=== PATIENT | male | born 1995 | race Caucasian/White ===

== ENCOUNTER 2016-12-04 09:06 | Emergency (ER) | payer OTHER ==
[~2016-12-04] VITALS: Ht 195.6 cm; Wt 75.0 kg
[2016-12-04 09:29] VITALS: BP 147/88; PULSE 78; RESP 16; O2SAT 99
--- NOTE | 2016-12-04 11:13 | ED.REPORT ---
HPI-Headache Date of Service Dec 04, 2016 ED Provider: Brittany Barker MD A 21 year old male with a history of severe headaches and anxiety presents to the ED complaining of a severe headache onset 3 days ago. He has not slept in 3 days. Baseline headaches began when the patient was 8 or 9 years old. He reports that his mom has been diagnosed with migraines, but that he himself has never been diagnosed with migraines. He denies any medication allergies and states that he has not used Imitrex before. He has been given Seroquel in the past to treat anxiety. He smokes a quarter pack of cigarettes per day, but has only smoked marijuana a couple of times this year. He reports no history of substance abuse. He is currently seeing Dr. Vance but does not have a regular doctor. Nursing Notes Stated Complaint: MIGRAINE Chief Complaint: Neuro Symptoms/ Deficits Nursing Notes Reviewed: Yes Allergies: Coded Allergies: haloperidol (Verified Allergy, Intermediate, EPS symptoms, 12/04/16) Scheduled Quetiapine Fumarate (Seroquel) 100 Mg Tablet 100 MG PO HS Sumatriptan Succinate (Imitrex) 50 Mg Tablet 50 MG PO PRN headache General Time Seen by MD: 11:09 Chief Complaint Headache Hx Obtained From: Patient Arrived By: Walk-in Sudden in Onset?: Yes Onset Occurred: 3 days ago Symptom Duration: Since onset Severity: Current: Severe Severity: Maximum: Severe Recent Healthcare: No recent doctor visit Similar Sx Previous: No Past Medical History Past Medical History History of migraines that began at age 8 or 9, but never officialy diagnosed. Anxiety. Past Surgical History None reported. Smoking History Current Every Day Smoker (Quarter of pack per day.) Ambulatory Status Independent Review of Systems Review of Systems Note: Difficulty sleeping. Neurologic: Reports: Headache Complete sys rev & neg: except as marked. Respiratory: Denies: Non-productive cough Physical Exam Initial Vital Signs Vital Signs (First) Date Time Temp Pulse Resp B/P Pulse Ox O2 Delivery O2 Flow Rate FiO2 12/04/16 09:29 37.3 78 16 147/88 99 12/04/16 13:47 Room Air Initial VS: Reviewed General/Constitutional: Awake, Alert Head / Eyes: Normocephalic, PERRL, EOMI Pain is across entire head. No photophobia at 1246 recheck. Neck: Atraumatic, Full range of motion Neurologic: Oriented X3 Pain is acorss entire head, but neurological was otherwise nonfocal. ENT: Atraumatic, Mucous membranes moist Respiratory / Chest: Atraumatic, Breath sounds NL, Breath sounds = bilat, No respiratory distress, No rales, No rhonchi Cardiovascular: Heart rate NL, Regular rhythm, Heart sounds NL, No gallop, No murmurs, No rubs Abdomen: Atraumatic, No guarding, No rebound Skin: Atraumatic, Color NL, No rash, Warm, Dry Color / Condition: Positive: Lymphangitis present Abscess #1 Location/Condition: Positive: Axilla L..., Axilla R..., Breast L... , Perineum... Back: Atraumatic, Full range of motion Upper Extremity / MS: Atraumatic, Full range of motion Wrist / Hand: Atraumatic, Full range of motion Lower Extremity / Pelvis / MS: Atraumatic, Full range of motion Interpretation & Diagnostics Lab Results Interpretation Lab Results Interpretation: IMPRESSION: No acute intracranial abnormality. Dictated by: Yarely Jackson M.D. on 12/04/2016 at 13:32 CT Head Interpretation IMPRESSION: No acute intracranial abnormality. Dictated by: Yarely Jackosn M.D. on 12/04/2016 at 13:32 Approved by: Yarely Jackson M.D. on 12/04/2016 at 13:36 Study: Head CT no contrast Interpretation / Wet Read by: Interpret - Radiologist Re-Eval/Medical Decision Source of Hx: Old records Re-Evaluation/Progress #1: Time of Eval: 12:46 Re-Evaluation/Progress Note: Rechecked the patient and explained plan to administer benadryl. No significant relief with typical MARINO meds yet, about an hour ago. Re-eval after benadryl. If still this same level of pain, will get CT brain. Has not had formal dx of migraine, no imaging done previously, hx is very suggestive of migraine. He has no red flags for headache at this time. Re-Evaluation/Progress #2: Time of Eval: 13:07 Re-Evaluation/Progress Note: Rechecked the patient. Patient is still hurting. He has had minimal response to headache cocktail. He has no photophobia. His lack of sleep for the last couple of days appears to be more related to agitation rather than pain. He is moving his head without any nucal pain. Re-Evaluation/Progress #3: Time of Eval: 14:01 Re-Evaluation/Progress Note: Rechecked the patient, explained test results, diagnosis, and plan for discharge. The patient understands and agrees with the plan. All questions addressed. Counseled Regarding: Diagnosis, Lab results, Need for follow-up, When/why to return to ED Discharge & Departure Impression: Primary Impression: Head ache Additional Impression: Adverse drug effect Ruled Out: Brain mass, Meningitis, Subarachnoid hemorrhage Disposition: Home Discharge Condition All VS Reviewed: Yes Condition: Stable Additional Instructions: Your brain CT was unremarkable today. Your history is certainly suggestive of migraine headache however there are a couple of things that also make me pause and consider further. The fact that our typical migraine cocktail did not make a difference, the lack of light sensitivity, and the severe insomnia all made me think through the migraine diagnosis a bit more thoroughly. At this point, I think the best answer is migraine. I believe that the insomnia is clearly exacerbating the pain. I am going to suggest that you use 100-200 mg of Seroquel in the next one to 2 nights to help put you to sleep I have also given you a prescription for sumatriptan, Imitrex. This is a migraine specific medication and is meant to be taken as soon as you feel a headache starting. It can prevent severe migraines and certainly say B3 days of pain followed by an emergency room visit In the emergency room today, we clearly identified that you do not tolerate Haldol. It has been listed as a formal allergy for you I hope you get some sleep and feel better soon Referrals: TASHA (PCP) Gallo Attestation Portions of this note were transcribed by Stefano Sharpe. I, Dr. Barker, personally performed the history, physical exam, and medical decision-making: I reviewed and confirmed the accuracy for the information in the transcribed note. Signed by: gallo Bansal, 12/04/16 [id number]. copies to: Brittany Rodriguez MD Dec 04, 2016 11:13 Stefano Sharpe Dec 04, 2016 11:29
[2016-12-04] MEDS ORDERED: 0.9% Sodium Chloride 1,000 ML IV ONE (11:27)
[2016-12-04] MEDS ORDERED: Ondansetron 2 mg/mL 2 mL Inj IVPUSH ONE (11:30)
[2016-12-04] MEDS ORDERED: Dexamethasone 10 mg/mL Inj IVPUSH ONE (11:30)
[2016-12-04] MEDS ORDERED: Haloperidol 5 mg/mL Inj IVPUSH ONE (11:30)
[2016-12-04] MEDS ORDERED: HYDROmorphone 1 mg/mL Inj IVPUSH ONE (13:15)
[2016-12-04] MEDS ORDERED: QUET100T PO (13:17)
[2016-12-04] MEDS ORDERED: SUMA50TA31 PO (13:17)
--- NOTE | 2016-12-04 13:37 | DRSVH ---
PROCEDURE: CT BRAIN WITHOUT CONTRAST ([id number]) INDICATIONS: severe headache TECHNIQUE: Noncontrast 4.5 mm thick angled axial sections acquired from the foramen magnum to the vertex, with c oronal reformats. COMPARISON: None. FINDINGS: Image quality: Excellent. CSF spaces: Basal cisterns are patent. No extra-axial fluid collections. Ventricles are normal in size and shape. Brain: No midline shift. No intracranial masses or hemorrhage. Anderson-white matter interface is norm al. Skull and face: Calvarium and visualized facial bones are intact, without suspicious lesions. Sinuses: Visualized sinuses and mastoids are clear. IMPRESSION: No acute intracranial abnormality. Dictated by: Yarely Jackson M.D. on 12/04/2016 at 13:32 Approved by: Yarely Jackson M.D. on 12/04/2016 at 13:36
[2016-12-04 13:47] VITALS: BP 144/67; PULSE 76; RESP 15; O2SAT 97
[2016-12-04 14:06] VITALS: BP 131/75; PULSE 86; RESP 14; O2SAT 97
== END 2016-12-04 14:07 | disposition home or self-care (01) ==
LOC: SED 09:06
DX: R51 Headache (principal); T43.595A Adverse effect of other antipsychotics and neuroleptics, initial encounter; F17.200 Nicotine dependence, unspecified, uncomplicated; Z88.5 Allergy status to narcotic agent
CPT/HCPCS: 70450; 96361; 96374; 96375; 96376; 99284; J1100; J1170; J1200; J1630; J2405; J7030